=== PATIENT | male | born 1990 | race American Indian/Alaskan Native ===

== ENCOUNTER 2018-05-29 18:47 | Emergency (ER) | payer BC, OTHER ==
[2018-05-29] MEDS ORDERED: ZOFRAN IV ONE ×2 (18:53→21:42)
[2018-05-29] MEDS ORDERED: DILAUDID IV ONE ×2 (18:53→20:15)
[2018-05-29] MEDS ORDERED: NACL 0.9% 1000 ML 1,000 ML IV ONE ×2 (18:53→21:09)
[2018-05-29] MEDS ORDERED: NACL 0.9% 1000 ML 1,000 ML ONE (18:54)
[2018-05-29 19:03] LABS: Basophils # (Auto) 0.1 K/mm3 (0.0-0.1); Basophils % (Auto) 1.1 % (0.0-1.8); Eosinophils # (Auto) 0.2 K/mm3 (0.0-0.4); Hematocrit 41.5 % (35.5-45.6); Hemoglobin 14.8 gm/dl (11.8-15.2); Lymphocytes # (Auto) 3.7 K/mm3 (1.2-5.4); Lymphocytes % (Auto) 35.1 % (13.4-35.0); Mean Corpuscular HGB Conc 36 % (32-34); Mean Corpuscular Volume 84 fl (84-94); Monocytes # (Auto) 1.2 K/mm3 (0.0-0.8); Monocytes % (Auto) 11.1 % (0.0-7.3); Platelet Count 328 K/mm3 (140-440); Red Blood Count 4.97 M/mm3 (3.65-5.03); Red Cell Distribution Width 14.9 % (13.2-15.2)
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
[2018-05-29 19:38] LABS: Blood Urea Nitrogen TNR mg/dL (9-20)
[2018-05-29 19:39] LABS: BUN/Creatinine Ratio TNR; Calcium TNR mg/dL (8.4-10.2); Hemolysis Index TNR
[2018-05-29 20:13] LABS: BUN/Creatinine Ratio 30; Blood Urea Nitrogen 18 mg/dL (9-20); Calcium 8.4 mg/dL (8.4-10.2); Hemolysis Index 6
[2018-05-29] MEDS ORDERED: ANCEF IM ONE (20:16)
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
[2018-05-29 21:32] VITALS: BP 145/90
[2018-05-29] MEDS ORDERED: ZOFRAN ONE (21:33)
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
== END 2018-05-29 22:26 | disposition other institution (70) ==
LOC: ED 18:47
DX: S31.100A Unspecified open wound of abdominal wall, right upper quadrant without penetration into peritoneal cavity, initial encounter (principal); S26.00XA Unspecified injury of heart with hemopericardium, initial encounter; W34.09XA Accidental discharge from other specified firearms, initial encounter; Y93.89 Activity, other specified; Y92.89 Other specified places as the place of occurrence of the external cause; Y99.8 Other external cause status
CPT/HCPCS: 36415; 71045; 71260; 74177; 80048; 85025; 96372; 96374; 96375; 96376; 99285; J0690; J1170; J2405; J7030; Q9967